=== PATIENT | male | born 1970 | race Caucasian/White ===

== ENCOUNTER → 2017-01-28 | Outpatient (CLI) | payer BC ==
[2017-01-28 18:21] LABS: CHOLESTEROL/HDL RATIO 2.5
== END | disposition home or self-care (01) ==
LOC: C.LABBFT 15:36
PROVIDERS: ATTEND Physician Assistant Medical
DX: E78.5 Hyperlipidemia, unspecified (principal)

== ENCOUNTER 2021-12-14 11:43 | Inpatient (IN) ==
--- NOTE | 2021-12-14 12:12 | Emergency Department Note ---
Impression & Plan Depression with suicidal ideation ED Provider Note NAME: JOSE REAL AGE: 51 SEX: M : 1970 ARRIVES VIA: Walk-In INFORMANT: Patient, the patient's significant other ED PROVIDER(S): Dale Islas DO CHIEF COMPLAINT: Depression HPI: The patient is a 51-year-old male who presented to emergency department with his significant other for an evaluation of mental health issues. The patient was recently diagnosed with bipolar disorder. Initially he was started on Trintellix. He had a recent follow-up appointment a few weeks ago and was switched to lamotrigine. The patient states he still does not feel much better. He is having significant depression. He has had problems with suicidal ideation as well. The patient admits that he was looking for a gun today he was thinking about hurting himself with a gun. He has had no overdose attempts. He has had no previous admissions for mental health issues but he is very worried about his condition and does not feel safe at home. The patient denies having any chest pain or difficulty breathing. He had no recent traveling. He has no cough or fever. The patient states he has been compliant with his usual outpatient medications. ROS: See above HPI for pertinent positives & negatives. A total of 10 systems reviewed and were otherwise negative. PAST MEDICAL HISTORY: See Below PAST SURGICAL HISTORY: See Below FAMILY HISTORY: See Below SOCIAL HISTORY: See Below HOME MEDICATIONS: See Below ALLERGIES: See Below VITALS: See Below PHYSICAL EXAMINATION: GENERAL: The patient is awake and alert. He does not appear to be uncomfortable. EYES: The conjunctivae are clear. The pupils are round and reactive. EARS, NOSE, MOUTH AND THROAT: The nose is without any evidence of any deformity. NECK: The neck is nontender and supple. RESPIRATORY: Normal respiratory effort is noted there is no evidence of wheezing rhonchi or rales CARDIOVASCULAR: Regular rate and rhythm noted there no murmurs rubs or gallops normal S1 normal S2. GASTROINTESTINAL: The abdomen is soft. Abdomen is nontender. MUSCULOSKELETAL/EXTREMITIES: There is no evidence of gross deformity full range of motion is noted in the hips and shoulders. SKIN: There is no obvious evidence of any rash. There are no petechiae, pallor or cyanosis noted. Postsurgical changes are noted in the right hand consistent with recent carpal tunnel release. There was no erythema. NEUROLOGIC: The patient is awake and alert. The patient is oriented x3. PSYCH: The patient makes poor eye contact for some of the evaluation. His affect is flat. He continues to admit to suicidal ideation. MEDICAL DECISION MAKING: The patient is a 51-year-old male who presented to emergency department for an evaluation of mental health issues. The patient was recently diagnosed with bipolar disorder. The patient was started on medications but this was recently changed a few weeks ago. The patient was medically cleared in the emergency department. He was reevaluated by the mental health case management. He was felt to be a good candidate for inpatient management. Triage Nursing notes reviewed. Prior medical records reviewed Vital Signs: reviewed and remarkable for tachycardia. Differential diagnosis: Mood disorder, infection, hypoglycemia, electrolyte abnormalities, cardiac sources, intracerebral event, toxicologic, trauma, neurologic, as well as other pathologies. ER treatment provided: See below Diagnostics interpreted by me: ECG: none Laboratory studies: As stated above and show below. Imaging studies: See below Consultation(s): none Past Med/Surg History Medical History Anxiety Depression Hyperlipidemia Hypertension Surgical History History of colonoscopy Hx of elbow surgery right side tendon repair Hx of vasectomy S/P carpal tunnel release left S/P lumbar laminectomy Family History Mother Colorectal cancer Sister Myocardial infarction Grandfather (Paternal) Diabetes Denies family history of Ovarian cancer Prostate cancer Breast cancer Lung cancer Social History Smoking Status: Never smoker Second Hand Exposure: Yes; Hx Alcohol Use: Yes Alcohol type: beer Alcohol Intake Frequency: 2-3 x/Week Hx Substance Use: No Preferred Language: Telugu Communication Ability: Effective Manager [employer]ing Required: No Beliefs That Will Affect Care: None marital status: Life Partner Current Living Situation: Spouse Feels Safe at Home: Yes caffeine: Yes Dental Care, Regularly: No Physical Activity Frequency: 1-2 Times per Week Seatbelt Use: always Sunscreen Use: Yes Assistive Devices: Glasses Allergies Allergies Allergy/AdvReac Type Severity Reaction Status Date / Time No Known Allergies Allergy Verified 12/14/21 13:10 Home Meds Home Medications Medication Instructions Recorded Confirmed lisinopril 20 mg tablet 20 mg PO QAM 09/26/21 12/14/21 atorvastatin 20 mg tablet 20 mg PO QAM 12/14/21 12/14/21 lamotrigine 25 mg tablet 25 mg PO QAM 12/14/21 12/14/21 Results & Data (ED) Vital Signs Vital Signs - 24 hr 12/14/21 11:47 Temperature 36.1 C L Temperature Source Temporal Artery Scan Pulse Rate 106 H Pulse Rhythm Regular Pulse Strength Normal Respiratory Rate 20 Respiratory Effort / Characteristics Non-Labored Spontaneous Respiratory Depth Normal Respiratory Pattern Regular Blood Pressure 115/84 Blood Pressure Mean 94 Blood Pressure Position Sitting Pulse Oximetry 97 Oxygen Delivery Method Room Air Sepsis Recent Fever Within 48 Hours No Sepsis New/Unexplained Change in Mental Status No Sepsis Action Taken by Nursing No Action Required Home Medications Current Medication List: was personally reviewed by me Laboratory Data Attestation: I reviewed the patient's lab results. Result diagrams: 12/14/21 12:10 12/14/21 12:10 Lab Results 12/14/21 12/14/21 12/14/21 Range/Units 12:10 12:10 12:10 WBC 7.60 (4.8-10.8) K/uL RBC 4.75 (4.7-6.1) M/uL Hgb 14.7 (14.0-18.0) g/dL Hct 43.3 (42-52) % MCV 91.2 (80-100) fL MCH 30.9 (25-34) pg MCHC 33.9 (32-36) g/dL RDW Std Deviation 41.8 (36.4-46.3) fL RDW Coeff of [place] 12.5 (11.5-14.5) % Plt Count 272 (130-400) K/uL MPV 10.6 H (7.4-10.4) fL Immature Gran % (Auto) 0.1 % Neut % (Auto) 77.7 % Lymph % (Auto) 16.3 % Nicholas % (Auto) 5.3 % Eos % (Auto) 0.3 % Baso % (Auto) 0.3 % Neut # (Auto) 5.91 (1.4-6.5) K/uL Lymph # (Auto) 1.24 (1.2-3.4) K/uL Nicholas # (Auto) 0.40 (0.11-0.59) K/uL Eos # (Auto) 0.02 (0-0.5) K/uL Baso # (Auto) 0.02 (0-0.2) K/uL Immature Gran # (Auto) 0.01 (0.00-0.02) K/uL Sodium 138 (136-145) mmol/L Potassium 3.8 (3.5-5.1) mmol/L Chloride 104 (98-107) mmol/L Carbon Dioxide 26 (21-32) mmol/L Anion Gap 8 (3-11) BUN 8 (6-23) mg/dl Creatinine 1.15 (0.6-1.4) mg/dl Est Cr Clr Drug Dosing 80.9 ml/min Est GFR ( Amer) 84.9 ml/min Est GFR (Non-Af Amer) 73.3 ml/min BUN/Creatinine Ratio 7.0 L (10-20) Glucose 137 H (70-99(Fasting)) mg/dl Calcium 9.4 (8.5-10.1) mg/dl Total Bilirubin 1.3 H (0.2-1.0) mg/dl AST 22 (13-39) U/L ALT 35 (7-52) U/L Alkaline Phosphatase 61 (34-104) U/L Total Protein 7.5 (6.0-8.3) gm/dl Albumin 4.5 (3.4-5.0) gm/dl Globulin 3.0 (2.5-4.0) gm/dl Albumin/Globulin Ratio 1.5 (0.9-2) TSH 1.024 (0.300-4.500) uIu/ml Urine Color Urine Appearance (Clear) Urine pH (4.5-7.5) Ur Specific [place] (1.000-1.030) Urine Protein (Negative) Urine Glucose (UA) (Negative) Urine Ketones (Negative) Urine Blood (Negative) Urine Nitrite (Negative) Urine Bilirubin (Negative) Urine Urobilinogen (Negative) Ur Leukocyte Esterase (Negative) Urine WBC (Auto) (0-5) /hpf Urine RBC (Auto) (0-4) /hpf U Hyaline Cast (Auto) (0-5) /lpf U Epithel Cells (Auto) (0-5) /lpf Urine Bacteria (Auto) (Negative) Salicylates (3.0-30) mg/dl Urine Opiates Screen (Neg) Ur Methadone, Qual (Neg) Acetaminophen (10-30) ug/ml Urine Barbiturates (Neg) Ur Phencyclidine (PCP) (Neg) U Amphetamin/Meth Scrn (Neg) MDMA (Ecstasy) Screen (Neg) U Benzodiazepines Scrn (Neg) Ur Cocaine Metabolite (Neg) U Marijuana (THC) Screen (Neg) Ethyl Alcohol mg/dL (<10.0) mg/dl SARS-CoV-2, RNA, NAAT (NEGATIVE) 12/14/21 12/14/21 12/14/21 Range/Units 12:10 12:10 12:36 WBC (4.8-10.8) K/uL RBC (4.7-6.1) M/uL Hgb (14.0-18.0) g/dL Hct (42-52) % MCV (80-100) fL MCH (25-34) pg MCHC (32-36) g/dL RDW Std Deviation (36.4-46.3) fL RDW Coeff of [place] (11.5-14.5) % Plt Count (130-400) K/uL MPV (7.4-10.4) fL Immature Gran % (Auto) % Neut % (Auto) % Lymph % (Auto) % Nicholas % (Auto) % Eos % (Auto) % Baso % (Auto) % Neut # (Auto) (1.4-6.5) K/uL Lymph # (Auto) (1.2-3.4) K/uL Nicholas # (Auto) (0.11-0.59) K/uL Eos # (Auto) (0-0.5) K/uL Baso # (Auto) (0-0.2) K/uL Immature Gran # (Auto) (0.00-0.02) K/uL Sodium (136-145) mmol/L Potassium (3.5-5.1) mmol/L Chloride (98-107) mmol/L Carbon Dioxide (21-32) mmol/L Anion Gap (3-11) BUN (6-23) mg/dl Creatinine (0.6-1.4) mg/dl Est Cr Clr Drug Dosing ml/min Est GFR ( Amer) ml/min Est GFR (Non-Af Amer) ml/min BUN/Creatinine Ratio (10-20) Glucose (70-99(Fasting)) mg/dl Calcium (8.5-10.1) mg/dl Total Bilirubin (0.2-1.0) mg/dl AST (13-39) U/L ALT (7-52) U/L Alkaline Phosphatase (34-104) U/L Total Protein (6.0-8.3) gm/dl Albumin (3.4-5.0) gm/dl Globulin (2.5-4.0) gm/dl Albumin/Globulin Ratio (0.9-2) TSH (0.300-4.500) uIu/ml Urine Color Yellow Urine Appearance Clear (Clear) Urine pH 5.5 (4.5-7.5) Ur Specific [place] 1.003 (1.000-1.030) Urine Protein Negative (Negative) Urine Glucose (UA) Negative (Negative) Urine Ketones Negative (Negative) Urine Blood Trace H (Negative) Urine Nitrite Negative (Negative) Urine Bilirubin Negative (Negative) Urine Urobilinogen Negative (Negative) Ur Leukocyte Esterase Negative (Negative) Urine WBC (Auto) 0 (0-5) /hpf Urine RBC (Auto) 0-4 (0-4) /hpf U Hyaline Cast (Auto) 0 (0-5) /lpf U Epithel Cells (Auto) 0-5 (0-5) /lpf Urine Bacteria (Auto) Negative (Negative) Salicylates < 3.0 L (3.0-30) mg/dl Urine Opiates Screen (Neg) Ur Methadone, Qual (Neg) Acetaminophen < 3 L (10-30) ug/ml Urine Barbiturates (Neg) Ur Phencyclidine (PCP) (Neg) U Amphetamin/Meth Scrn (Neg) MDMA (Ecstasy) Screen (Neg) U Benzodiazepines Scrn (Neg) Ur Cocaine Metabolite (Neg) U Marijuana (THC) Screen (Neg) Ethyl Alcohol mg/dL < 10.0 (<10.0) mg/dl SARS-CoV-2, RNA, NAAT (NEGATIVE) 12/14/21 12/14/21 Range/Units 12:36 12:36 WBC (4.8-10.8) K/uL RBC (4.7-6.1) M/uL Hgb (14.0-18.0) g/dL Hct (42-52) % MCV (80-100) fL MCH (25-34) pg MCHC (32-36) g/dL RDW Std Deviation (36.4-46.3) fL RDW Coeff of [place] (11.5-14.5) % Plt Count (130-400) K/uL MPV (7.4-10.4) fL Immature Gran % (Auto) % Neut % (Auto) % Lymph % (Auto) % Nicholas % (Auto) % Eos % (Auto) % Baso % (Auto) % Neut # (Auto) (1.4-6.5) K/uL Lymph # (Auto) (1.2-3.4) K/uL Nicholas # (Auto) (0.11-0.59) K/uL Eos # (Auto) (0-0.5) K/uL Baso # (Auto) (0-0.2) K/uL Immature Gran # (Auto) (0.00-0.02) K/uL Sodium (136-145) mmol/L Potassium (3.5-5.1) mmol/L Chloride (98-107) mmol/L Carbon Dioxide (21-32) mmol/L Anion Gap (3-11) BUN (6-23) mg/dl Creatinine (0.6-1.4) mg/dl Est Cr Clr Drug Dosing ml/min Est GFR ( Amer) ml/min Est GFR (Non-Af Amer) ml/min BUN/Creatinine Ratio (10-20) Glucose (70-99(Fasting)) mg/dl Calcium (8.5-10.1) mg/dl Total Bilirubin (0.2-1.0) mg/dl AST (13-39) U/L ALT (7-52) U/L Alkaline Phosphatase (34-104) U/L Total Protein (6.0-8.3) gm/dl Albumin (3.4-5.0) gm/dl Globulin (2.5-4.0) gm/dl Albumin/Globulin Ratio (0.9-2) TSH (0.300-4.500) uIu/ml Urine Color Urine Appearance (Clear) Urine pH (4.5-7.5) Ur Specific [place] (1.000-1.030) Urine Protein (Negative) Urine Glucose (UA) (Negative) Urine Ketones (Negative) Urine Blood (Negative) Urine Nitrite (Negative) Urine Bilirubin (Negative) Urine Urobilinogen (Negative) Ur Leukocyte Esterase (Negative) Urine WBC (Auto) (0-5) /hpf Urine RBC (Auto) (0-4) /hpf U Hyaline Cast (Auto) (0-5) /lpf U Epithel Cells (Auto) (0-5) /lpf Urine Bacteria (Auto) (Negative) Salicylates (3.0-30) mg/dl Urine Opiates Screen Neg (Neg) Ur Methadone, Qual Neg (Neg) Acetaminophen (10-30) ug/ml Urine Barbiturates Neg (Neg) Ur Phencyclidine (PCP) Neg (Neg) U Amphetamin/Meth Scrn Neg (Neg) MDMA (Ecstasy) Screen Neg (Neg) U Benzodiazepines Scrn Neg (Neg) Ur Cocaine Metabolite Neg (Neg) U Marijuana (THC) Screen Neg (Neg) Ethyl Alcohol mg/dL (<10.0) mg/dl SARS-CoV-2, RNA, NAAT NEGATIVE (NEGATIVE) Discharge Plan Visit Data Chief Complaint: Mental Health Evaluation Stated Complaint: MENTAL HEALTH EVAL, SUICIDAL ED Provider: Dale Islas Discharge Problem: Depression with suicidal ideation Patient Disposition: Still a Patient Forms Stand Alone Forms: [facility], Suicide Prevention Resources Prescriptions Prescriptions: No Action atorvastatin 20 mg tablet 20 mg PO QAM RF: 0 lamotrigine 25 mg tablet 25 mg PO QAM RF: 0 lisinopril 20 mg tablet 20 mg PO QAM RF: 0 Referrals Referrals: PCP,NO [Physician] -
[2021-12-14 12:36] LABS: Basophils # (auto) 0.02 K/uL (0-0.2); Basophils % (auto) 0.3 %; Eosinophils # (auto) 0.02 K/uL (0-0.5); Eosinophils % (auto) 0.3 %; Hematocrit (blood only) 43.3 % (42-52); Hemoglobin 14.7 g/dL (14.0-18.0); Immature Granulocytes # (auto) 0.01 K/uL (0.00-0.02); Immature Granulocytes % (auto) 0.1 %; Lymphocytes # (auto) 1.24 K/uL (1.2-3.4); Lymphocytes % (auto) 16.3 %; Mean Corpuscular Hemoglobin 30.9 pg (25-34); Mean Corpuscular Hgb Conc 33.9 g/dL (32-36); Mean Corpuscular Volume 91.2 fL (80-100); Mean Platelet Volume 10.6 fL (7.4-10.4); Monocytes % (auto) 5.3 %; Neutrophils # (auto) 5.91 K/uL (1.4-6.5); Neutrophils % (auto) 77.7 %; Platelet Count 272 K/uL (130-400); RDW Coefficient of Variation 12.5 % (11.5-14.5); RDW Standard Deviation 41.8 fL (36.4-46.3); Red Blood Count 4.75 M/uL (4.7-6.1)
[2021-12-14 12:43] LABS: Appearance Urine Clear (Clear); Bacteria Urine Automated Negative (Negative); Bilirubin Urine Negative (Negative); Blood Urine Trace (Negative); Cast Urine Automated 0 /lpf (0-5); Color Urine Yellow; Epithelial Cell Urine Auto 0-5 /lpf (0-5); Glucose Urine UA Negative (Negative); Ketones Urine Negative (Negative); Leukocyte Esterase Urine Negative (Negative); Nitrite Urine Negative (Negative); Protein Urine Negative (Negative); RBC Urine Automated 0-4 /hpf (0-4); Specific Gravity Urine 1.003 (1.000-1.030); Urobilinogen Urine Negative (Negative); WBC Urine Automated 0 /hpf (0-5); pH Urine 5.5 (4.5-7.5)
[2021-12-14 12:47] LABS: Acetaminophen < 3 ug/ml (10-30); Salicylate < 3.0 mg/dl (3.0-30)
[2021-12-14 12:48] LABS: Albumin Globulin Ratio 1.5 (0.9-2); Albumin Level 4.5 gm/dl (3.4-5.0); Bilirubin,Total 1.3 mg/dl (0.2-1.0); Calcium 9.4 mg/dl (8.5-10.1); Creatinine Clr Calc Pharmacy 80.9 ml/min; Est GFR (African American) 84.9 ml/min; Est GFR (Non-African American) 73.3 ml/min; Potassium 3.8 mmol/L (3.5-5.1); Total Protein 7.5 gm/dl (6.0-8.3)
[2021-12-14 13:29] LABS: Amphetamines+Metham, Urine Neg (Neg); Barbiturates, Urine Neg (Neg); Benzodiazepine, Urine Neg (Neg); Cocaine, Urine Neg (Neg); MDMA (Ecstacy), Urine Neg (Neg); Methadone, Urine Neg (Neg); Opiate, Urine Neg (Neg); Phencyclidine, Urine Neg (Neg)
[2021-12-14] MEDS ORDERED: ALUMINUM/MAGNESIUM SUSP 30 ML UDC PO PRN (15:48)
[2021-12-14] MEDS ORDERED: SODIUM CHLORIDE 0.65% NA SOLN 45 ML (OCEAN) PRN (15:48)
[2021-12-14] MEDS ORDERED: hydrOXYzine HCl 25 MG TAB PO PRN ×2 (15:48)
[2021-12-14] MEDS ORDERED: MAGNESIUM HYDROXIDE SUSP 30 ML UDC PO PRN (15:48)
[2021-12-14] MEDS ORDERED: BISMUTH SUBSALICYLATE LIQD 236 ML PO PRN (15:48)
[2021-12-14] MEDS ORDERED: ACETAMINOPHEN 325 MG TAB PO PRN (15:48)
[2021-12-15] MEDS: lisinopril 20 MG TAB PO SCH (08:22)
[2021-12-15] MEDS: lamoTRIgine 25 MG TAB PO SCH (08:23)
[2021-12-15] MEDS: ATORVASTATIN 20 MG TAB PO SCH (08:23)
--- NOTE | 2021-12-15 09:44 | History & Physical ---
Date of Service December 15, 2021 Impression / Recommendations Impression 51 yo male with bipolar depression presents with worsening of mood over the past 6 months complicated by loss of brother 1 year ago, currently off work due to surgery recovery, recently started Lamictal but little relief given low dose. (1) Bipolar disorder: The patient was admitted to the [facility] ([facility] mental health unit) on q15 min checks (behavioral with suicide precautions) for safety. The patient will participate in group, recreational, and milieu therapies and will be offered additional individual and family sessions as clinically appropriate. Risks/benefits/alternatives reviewed re: Lamictal for mood stabilization. Discussion included but was not limited to slow titration to decrease risks of Yahir's Dagoberto syndrome. Patient agrees to hold med/notify current prescriber of rash immediately. Risks/benefits/alternatives were reviewed re: antipsychotics for mood and/or psychosis. Discussion included but was not limited to metabolic side effects, risks of TD and suicidal thoughts. There were no abnormal motor movements at baseline. Fasting glucose and lipid panel ordered for baseline monitoring. He agreed to a trial of Seroquel 50 mg po qhs with likely titration until Lamictal therapeutic. 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 Chief Complaint patient had bullets and was looking for his gun History of Present Illness Jose presented to the ED with his . He has been experiencing periods of depression and mood instability for years but was only recently diagnosed with bipolar disorder by his provider at [facility]. Symptoms have been worse in the past 6 months due to a variety of stressors. He was in 09/04 and is currently off of work until 12/29/21 following carpal tunnel release. His mother of complications of cancer last year. He has periods of up to 3 days at a time where he doesn't sleep and his appetite has been poor with a 10 lb weight loss. His brother of suicide and although he doesn't want to harm himself, he became so restless and with racing thoughts he felt not in control. He clarifies that he had some control as otherwise he could have pushed past his to get the gun. He states that he was using more alcohol (up to 6 beers a day) to manage his thoughts until 2 weeks ago. He denies having a drinking problem, states he stopped because it wasn't helping. He thinks that being off work made it harder to deal with his upsetting thoughts as no distractor. When no sleeping well he denies cardenas but gets more jealous/suspicious bordering on paranoid. Example he gave was asking alot of questions when a man brought her a drink at a bar. He states that he's not a "hot head" but has had brief periods of increase irritability where he will throw or break something if it doesn't go his way. This is unlike him and describes breaking a weed whacker. He relates well to his ex and is involved in his children's school activities. He reports atypical response to antidepressant medications, started Prozac for irritability but it caused sexual side effects. He is toleraing Lamictal so far but only a few days on 25 mg. He denies any history of jennifer patience. He doesn't view himself as anxious but will feel internally restless. He reports some OCD traits like having to rearrange the place settings at a meal and have things in their place. Past Psychiatric History Previous Psych History: no therapist Current Psychiatric Diagnosis: Bipolar Outpatient Services: [facility] Previous Psych Admissions: none Do You Have Access To A Gun?: Yes (need to confirm removes) History of Previous Suicide Attempt: No Describe Attempts in the Past: no prior attempts Past Medication Trials: Wellbutrin up to 300 mg, Prozac, Trintellix, just started Lamictal after Trintel lix trial. Past Head Trauma/Neuro History denied Allergies Allergy/AdvReac Type Severity Reaction Status Date / Time No Known Allergies Allergy Verified 12/14/21 13:10 Home Medications Medication Instructions Recorded Confirmed Type lisinopril 20 mg tablet 20 mg PO QAM 09/26/21 12/14/21 History atorvastatin 20 mg tablet 20 mg PO QAM 12/14/21 12/14/21 History lamotrigine 25 mg tablet 25 mg PO QAM 12/14/21 12/14/21 History bupropion HCl 150 mg 24 hr tablet, 150 mg PO DAILY 12/15/21 12/15/21 History extended release Family History Family History of: Alcoholism/Drug Abuse (father) and Suicide Completion (brother, years ago his sister had an [place] from an OD) Alcohol History Hx of Alcohol Use Over the Past 12 Months: Yes (2-3 beers per week) AUDIT Total Score: 7 Smoking Use Have You Smoked or Used Tobacco Products in the Last 30 Days: No Smoking Status: Never smoker Substance History Hx of Prescription Med Misuse Over the Past 12 Months: No Hx of Over the Counter Med Misuse Over the Past 12 Months: No Hx of Inhalent Misuse Over the Past 12 Months: No Hx of Organic Substance Use Over the Past 12 Months: No Hx of Illegal Substances/Street Drug Use Over Past 12 Months: No Problems as a Result of Past Substance Use: None Identified Personal History Living Arrangements: Home Childhood: 1 of 5 children, 2nd to youngest. Dad left when he was 4, not much relationship. 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) Marital Status: Number Of Children: 3 teenagers from 1st marriage live with mother, has 2 adult kids Beliefs That Will Affect Care: None Current Legal Problems: No Hx Legal Problems: No Hx Traumatic Life Events: Yes (family losses) Patient History Medical History Anxiety Depression Hyperlipidemia Hypertension Surgical History History of colonoscopy Hx of elbow surgery right side tendon repair Hx of vasectomy S/P carpal tunnel release left S/P lumbar laminectomy Family History Mother Colorectal cancer Sister Myocardial infarction Grandfather (Paternal) Diabetes Denies family history of Ovarian cancer Prostate cancer Breast cancer Lung cancer Social History Smoking Status: Never smoker Second Hand Exposure: Yes; Hx Alcohol Use: Yes Alcohol type: beer Alcohol Intake Frequency: 2-3 x/Week Hx Substance Use: No Preferred Language: Niuean Communication Ability: Effective Construction Safety Consultant Required: No Beliefs That Will Affect Care: None marital status: Life Partner Current Living Situation: Spouse Feels Safe at Home: No Is there a partner from a previous relationship who is making you feel unsafe now?: No caffeine: Yes Dental Care, Regularly: No Physical Activity Frequency: 1-2 Times per Week Seatbelt Use: always Sunscreen Use: Yes Assistive Devices: Glasses Review of Systems Review of Systems: All systems reviewed & are unremarkable except as noted in HPI & below Physical Exam Psychiatric: Orientation: alert and oriented x 3 Apperance: appropriately dressed and appropriately groomed Eye Contact: good eye contact Motor Behavior: no abnormal motor movements Speech: normal rate/rhythm/volume of speech Affect: + depressed affect Mood: + depressed mood Thought Process: goal directed thought process Thought Content: reality based without delusions Suicidal Thoughts: denies suicidal intent; + reports suicidal thoughts and + reports suicidal plan Homicidal Thoughts: denies homicidal thoughts Hallucinations: no auditory hallucinations and no visual hallucinations Cognition: attention grossly intact and language grossly intact Estimated Intelligence: consistent with education level Insight: + limited insight Judgement: + limited judgement Vital Signs (Past 24 Hours): Last Vital Signs Temp 36.6 C 12/15/21 06:43 Pulse 70 12/15/21 06:43 Resp 16 12/15/21 06:43 BP 110/71 12/15/21 06:43 Pulse Ox 99 12/14/21 16:20 Exam Statement: A physical exam was performed in the ED by Dr. Islas for the purposes of medical clearance. I accept that physical as correct and adequate for the purposes of the inpatient physical exam. Results & Data ([facility]) Laboratory Results Laboratory Results - last 24 hr 12/14/21 12/14/21 12/14/21 12:10 12:10 12:10 WBC 7.60 RBC 4.75 Hgb 14.7 Hct 43.3 MCV 91.2 MCH 30.9 MCHC 33.9 RDW Std Deviation 41.8 RDW Coeff of [place] 12.5 Plt Count 272 MPV 10.6 H Immature Gran % (Auto) 0.1 Neut % (Auto) 77.7 Lymph % (Auto) 16.3 [place] % (Auto) 5.3 Eos % (Auto) 0.3 Baso % (Auto) 0.3 Neut # (Auto) 5.91 Lymph # (Auto) 1.24 [place] # (Auto) 0.40 Eos # (Auto) 0.02 Baso # (Auto) 0.02 Immature Gran # (Auto) 0.01 Sodium 138 Potassium 3.8 Chloride 104 Carbon Dioxide 26 Anion Gap 8 BUN 8 Creatinine 1.15 Est Cr Clr Drug Dosing 80.9 Est GFR ( Amer) 84.9 Est GFR (Non-Af Amer) 73.3 BUN/Creatinine Ratio 7.0 L Glucose 137 H Calcium 9.4 Total Bilirubin 1.3 H AST 22 ALT 35 Alkaline Phosphatase 61 Total Protein 7.5 Albumin 4.5 Globulin 3.0 Albumin/Globulin Ratio 1.5 TSH 1.024 Urine Color Urine Appearance Urine pH Ur Specific [place] Urine Protein Urine Glucose (UA) Urine Ketones Urine Blood Urine Nitrite Urine Bilirubin Urine Urobilinogen Ur Leukocyte Esterase Urine WBC (Auto) Urine RBC (Auto) U Hyaline Cast (Auto) U Epithel Cells (Auto) Urine Bacteria (Auto) Salicylates Urine Opiates Screen Ur Methadone, Qual Acetaminophen Urine Barbiturates Ur Phencyclidine (PCP) U Amphetamin/Meth Scrn MDMA (Ecstasy) Screen U Benzodiazepines Scrn Ur Cocaine Metabolite U Marijuana (THC) Screen Ethyl Alcohol mg/dL SARS-CoV-2, RNA, NAAT 12/14/21 12/14/21 12/14/21 12:10 12:10 12:36 WBC RBC Hgb Hct MCV MCH MCHC RDW Std Deviation RDW Coeff of [place] Plt Count MPV Immature Gran % (Auto) Neut % (Auto) Lymph % (Auto) [place] % (Auto) Eos % (Auto) Baso % (Auto) Neut # (Auto) Lymph # (Auto) [place] # (Auto) Eos # (Auto) Baso # (Auto) Immature Gran # (Auto) Sodium Potassium Chloride Carbon Dioxide Anion Gap BUN Creatinine Est Cr Clr Drug Dosing Est GFR ( Amer) Est GFR (Non-Af Amer) BUN/Creatinine Ratio Glucose Calcium Total Bilirubin AST ALT Alkaline Phosphatase Total Protein Albumin Globulin Albumin/Globulin Ratio TSH Urine Color Yellow Urine Appearance Clear Urine pH 5.5 Ur Specific [place] 1.003 Urine Protein Negative Urine Glucose (UA) Negative Urine Ketones Negative Urine Blood Trace H Urine Nitrite Negative Urine Bilirubin Negative Urine Urobilinogen Negative Ur Leukocyte Esterase Negative Urine WBC (Auto) 0 Urine RBC (Auto) 0-4 U Hyaline Cast (Auto) 0 U Epithel Cells (Auto) 0-5 Urine Bacteria (Auto) Negative Salicylates < 3.0 L Urine Opiates Screen Ur Methadone, Qual Acetaminophen < 3 L Urine Barbiturates Ur Phencyclidine (PCP) U Amphetamin/Meth Scrn MDMA (Ecstasy) Screen U Benzodiazepines Scrn Ur Cocaine Metabolite U Marijuana (THC) Screen Ethyl Alcohol mg/dL < 10.0 SARS-CoV-2, RNA, NAAT 12/14/21 12/14/21 12:36 12:36 WBC RBC Hgb Hct MCV MCH MCHC RDW Std Deviation RDW Coeff of [place] Plt Count MPV Immature Gran % (Auto) Neut % (Auto) Lymph % (Auto) [place] % (Auto) Eos % (Auto) Baso % (Auto) Neut # (Auto) Lymph # (Auto) [place] # (Auto) Eos # (Auto) Baso # (Auto) Immature Gran # (Auto) Sodium Potassium Chloride Carbon Dioxide Anion Gap BUN Creatinine Est Cr Clr Drug Dosing Est GFR ( Amer) Est GFR (Non-Af Amer) BUN/Creatinine Ratio Glucose Calcium Total Bilirubin AST ALT Alkaline Phosphatase Total Protein Albumin Globulin Albumin/Globulin Ratio TSH Urine Color Urine Appearance Urine pH Ur Specific [place] Urine Protein Urine Glucose (UA) Urine Ketones Urine Blood Urine Nitrite Urine Bilirubin Urine Urobilinogen Ur Leukocyte Esterase Urine WBC (Auto) Urine RBC (Auto) U Hyaline Cast (Auto) U Epithel Cells (Auto) Urine Bacteria (Auto) Salicylates Urine Opiates Screen Neg Ur Methadone, Qual Neg Acetaminophen Urine Barbiturates Neg Ur Phencyclidine (PCP) Neg U Amphetamin/Meth Scrn Neg MDMA (Ecstasy) Screen Neg U Benzodiazepines Scrn Neg Ur Cocaine Metabolite Neg U Marijuana (THC) Screen Neg Ethyl Alcohol mg/dL SARS-CoV-2, RNA, NAAT NEGATIVE Current Inpatient Medications Current Inpatient Medications: Current Inpatient Medications Acetaminophen (Acetaminophen 325 Mg Tab) 650 mg PO Q4H PRN PRN Reason: Headache or Minor Fever Stop: 01/13/22 15:47 Al Hydrox/Mg Hydrox/Simethicone (Aluminum/Magnesium Susp 30 Ml Udc) 30 ml PO Q4H PRN PRN Reason: GI Upset Stop: 01/13/22 15:47 Atorvastatin Calcium (Atorvastatin 20 Mg Tab) 20 mg PO [facility] Stop: 01/14/22 08:59 Last Admin: 12/15/21 08:23 Dose: 20 mg Documented by: Bismuth Subsalicylate (Bismuth Subsalicylate Liqd 236 Ml) 15 ml PO PRN PRN PRN Reason: Loose Stool Stop: 01/13/22 15:47 Hydroxyzine HCl (Hydroxyzine Hcl 25 Mg Tab) 50 mg PO HSZ PRN PRN Reason: Insomnia Stop: 01/13/22 15:47 Hydroxyzine HCl (Hydroxyzine Hcl 25 Mg Tab) 25 mg PO Q4H PRN PRN Reason: Anxiety Stop: 01/13/22 15:47 Lamotrigine (Lamotrigine 25 Mg Tab) 25 mg PO [facility] Stop: 01/14/22 08:59 Last Admin: 12/15/21 08:23 Dose: 25 mg Documented by: Lisinopril (Lisinopril 20 Mg Tab) 20 mg PO [facility] Stop: 01/14/22 08:59 Last Admin: 12/15/21 08:22 Dose: 20 mg Documented by: Magnesium Hydroxide (Magnesium Hydroxide Susp 30 Ml Udc) 30 ml PO DAILY PRN PRN Reason: Constipation Stop: 01/13/22 15:47 Sodium Chloride (Sodium Chloride 0.65% Na Soln 45 Ml ([place])) 1 - 2 sprays NA PRN PRN PRN Reason: Nasal Dryness/Congestion Stop: 01/13/22 15:47
[2021-12-15] MEDS ORDERED: QUEtiapine FUMARATE 25 MG TABLET PO PRN (11:26)
[2021-12-15] MEDS: QUEtiapine FUMARATE 25 MG TABLET PO SCH (20:47)
[2021-12-16] MEDS: ATORVASTATIN 20 MG TAB PO SCH (08:48)
[2021-12-16] MEDS: lamoTRIgine 25 MG TAB PO SCH (08:48)
[2021-12-16] MEDS: lisinopril 20 MG TAB PO SCH (08:48)
[2021-12-16 10:03] LABS: Chol HDL Ratio 2.9 (0-5)
--- NOTE | 2021-12-16 11:17 | Psychiatric Progress Note ---
Date of Service December 16, 2021 Impression / Recommendations Impression 51 yo male with bipolar depression presents with worsening of mood over the past 6 months complicated by loss of brother 1 year ago, currently off work due to surgery recovery, recently started Lamictal but little relief given low dose. 12/16/21: improving (1) Bipolar disorder: 12/16/21: re-reviewed start date of Lamictal. Can increase to 50 mg tomorrow. Continue seroquel and reviewed labs and dose range. 12/15/21: The patient was admitted to the [facility] ([facility]) on q15 min checks (behavioral with suicide precautions) for safety. The patient will participate in group, recreational, and milieu therapies and will be offered additional individual and family sessions as clinically appropriate. Risks/benefits/alternatives reviewed re: Lamictal for mood stabilization. Discussion included but was not limited to slow titration to decrease risks of Yahir's Dagoberto syndrome. Patient agrees to hold med/notify current prescriber of rash immediately. Risks/benefits/alternatives were reviewed re: antipsychotics for mood and/or psychosis. Discussion included but was not limited to metabolic side effects, risks of TD and suicidal thoughts. There were no abnormal motor movements at baseline. Fasting glucose and lipid panel ordered for baseline monitoring. He agreed to a trial of Seroquel 50 mg po qhs with likely titration until Lamictal therapeutic. Inventory Assets Strengths: help seeking, supportive Needs: outpatient therapy, safety plan Risk Factors Assessment Male: Yes : Yes Do You Have Access To A Gun?: Yes Mental Health Diagnoses: Yes Substance Use Disorders: No Previous Attempt: No Family History of Suicide: Yes Previous Psychiatric Hospitalization: No Protective Factors Assessment : Yes Employed: Yes ([employer]) Supportive Family: Yes Interval History Identifying Information JOSE REAL is a 51-year-old M who currently lives in [place], has a recent bipolar dx, and was admitted on 12/14/21 16:16 on a 201 voluntary commitment for SI with acts of furtherance. Chief Complaint "I slept well, I feel hopeful". Review of Systems Sleep Information Total Hours of Sleep: 6.5 Sleep Comments: pt on q-15 minute checks Meal Information Percent Meal Consumed - Breakfast: 60 Percent Meal Consumed - Lunch: 100 Percent Meal Consumed - Dinner: 80 Subjective Subjective Patient was seen & assessed and interval progress reviewed with nursing and social work. Family meeting with went well per patient. Sleep is improving. No mood instability noted on unit. Tolerating medication. Physical Exam Psychiatric Orientation: alert and oriented x 3 Apperance: appropriately dressed and appropriately groomed Eye Contact: good eye contact Motor Behavior: no abnormal motor movements Speech: normal rate/rhythm/volume of speech Affect: euthymic affect Mood: + depressed mood Thought Process: goal directed thought process Thought Content: reality based without delusions Suicidal Thoughts: denies suicidal thoughts and denies suicidal plan Homicidal Thoughts: denies homicidal thoughts Hallucinations: no auditory hallucinations and no visual hallucinations Cognition: attention grossly intact and language grossly intact Estimated Intelligence: consistent with education level Insight: + fair insight Vital Signs (Past 24 Hours) Last Vital Signs Temp 36.5 C 12/16/21 06:51 Pulse 89 12/16/21 06:52 Resp 16 12/16/21 06:51 BP 110/72 12/16/21 06:52 Pulse Ox 99 12/14/21 16:20 Results & Data ([facility]) Laboratory Results Laboratory Results - last 24 hr 12/16/21 08:40 Fasting Glucose 79 Triglycerides 106 Cholesterol 125 LDL Cholesterol, Calc 61 VLDL Cholesterol, Calc 21 HDL Cholesterol 43 Cholesterol/HDL Ratio 2.9 Current Inpatient Medications Current Inpatient Medications: Current Inpatient Medications Acetaminophen (Acetaminophen 325 Mg Tab) 650 mg PO Q4H PRN PRN Reason: Headache or Minor Fever Stop: 01/13/22 15:47 Al Hydrox/Mg Hydrox/Simethicone (Aluminum/Magnesium Susp 30 Ml Udc) 30 ml PO Q4H PRN PRN Reason: GI Upset Stop: 01/13/22 15:47 Atorvastatin Calcium (Atorvastatin 20 Mg Tab) 20 mg PO QAM JEANNINE Stop: 01/14/22 08:59 Last Admin: 12/16/21 08:48 Dose: 20 mg Documented by: Bismuth Subsalicylate (Bismuth Subsalicylate Liqd 236 Ml) 15 ml PO PRN PRN PRN Reason: Loose Stool Stop: 01/13/22 15:47 Hydroxyzine HCl (Hydroxyzine Hcl 25 Mg Tab) 25 mg PO Q4H PRN PRN Reason: Anxiety Stop: 01/13/22 15:47 Lamotrigine (Lamotrigine 25 Mg Tab) 25 mg PO QAM JEANNINE Stop: 01/14/22 08:59 Last Admin: 12/16/21 08:48 Dose: 25 mg Documented by: Lisinopril (Lisinopril 20 Mg Tab) 20 mg PO QAM [facility] Stop: 01/14/22 08:59 Last Admin: 12/16/21 08:48 Dose: 20 mg Documented by: Magnesium Hydroxide (Magnesium Hydroxide Susp 30 Ml Udc) 30 ml PO DAILY PRN PRN Reason: Constipation Stop: 01/13/22 15:47 Quetiapine Fumarate (Quetiapine Fumarate 25 Mg Tablet) 50 mg PO HS [facility] Stop: 01/14/22 21:59 Last Admin: 12/15/21 20:47 Dose: 50 mg Documented by: Quetiapine Fumarate (Quetiapine Fumarate 25 Mg Tablet) 50 mg PO HS PRN PRN Reason: Anxiety/Insomnia Stop: 01/14/22 21:59 Sodium Chloride (Sodium Chloride 0.65% Na Soln 45 Ml (Desha)) 1 - 2 sprays NA PRN PRN PRN Reason: Nasal Dryness/Congestion Stop: 01/13/22 15:47 Post Discharge Appointments Primary Care Physician Name Of Family Doctor: Karin Mosher
[2021-12-16] MEDS: QUEtiapine FUMARATE 25 MG TABLET PO SCH (20:38)
[2021-12-17] MEDS ORDERED: lamoTRIgine 25 MG TAB PO SCH (09:00)
[2021-12-17] MEDS: ATORVASTATIN 20 MG TAB PO SCH (09:02)
[2021-12-17] MEDS: lisinopril 20 MG TAB PO SCH (09:02)
--- NOTE | 2021-12-17 11:08 | Discharge Summary ---
Date of Service December 17, 2021 History of Present Illness Rishi presented to the ED with his . He has been experiencing periods of depression and mood instability for years but was only recently diagnosed with bipolar disorder by his provider at [place]. Symptoms have been worse in the past 6 months due to a variety of stressors. He was in 09/04 and is currently off of work until 12/29/21 following carpal tunnel release. His mother of complications of cancer last year. He has periods of up to 3 days at a time where he doesn't sleep and his appetite has been poor with a 10 lb weight loss. His brother of suicide and although he doesn't want to harm himself, he became so restless and with racing thoughts he felt not in control. He clarifies that he had some control as otherwise he could have pushed past his to get the gun. He states that he was using more alcohol (up to 6 beers a day) to manage his thoughts until 2 weeks ago. He denies having a drinking problem, states he stopped because it wasn't helping. He thinks that being off work made it harder to deal with his upsetting thoughts as no distractor. When no sleeping well he denies cardenas but gets more jealous/suspicious bordering on paranoid. Example he gave was asking alot of questions when a man brought her a drink at a bar. He states that he's not a "hot head" but has had brief periods of increase irritability where he will throw or break something if it doesn't go his way. This is unlike him and descr ibes breaking a weed whacker. He relates well to his ex and is involved in his children's school activities. He reports atypical response to antidepressant medications, started Prozac for irritability but it caused sexual side effects. He is toleraing Lamictal so far but only a few days on 25 mg. He denies any history of jennifer patience. He doesn't view himself as anxious but will feel internally restless. He reports some OCD traits like having to rearrange the place settings at a meal and have things in their place. Physical Exam Psychiatric See admission H&P and DOD assessment. Vital Signs (Past 24 Hours) Last Vital Signs Temp 36.6 C 12/17/21 06:51 Pulse 77 12/17/21 06:52 Resp 16 12/17/21 06:51 BP 107/71 12/17/21 06:52 Pulse Ox 99 12/14/21 16:20 Principal Diagnosis bipolar II disorder Psychiatric Data See daily stay summary. In short, safety was maintained and the patient was cooperative with care. Medication changes included addition of mood stabilizer Seroquel pending titration of Lamictal to therapeutic level and they tolerated this well. Lamictal was increased to 50 mg on 12/17/21. A family session was held with his who did confirm that guns were removed from the home and safety plan was completed prior to discharge. Rishi was an active participant in groups and really benefited from the therap eutic milieu. Day of Discharge Assessment Today the patient voices readiness for discharge. They note improvement in mood and deny thoughts to harm self or others. Thoughts remain organized and they are improved from admission. There is no evidence of psychosis. They agree to take mediations as prescribed and keep follow-up appointments. They are stable for discharge to outpatient level of care. Transition of Care Transition Of Care Record: was reviewed with the patient Advance Directives Advance Directives Information Provided: No Advance Directives: No Mental Health Advance Directive: No Advance Directives on File: No Living Will: No Power of Allied Health Instructor: No Advance Directives Reason:: Declines as Mental Health Visit. 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[employer]) Supportive Family: Yes Tobacco Cessation at Discharge Tobacco Cessation Medication Prescribed at Discharge: Not Applicable/Non-Smoker Total Time Total Time Spent: Greater Than 30 Minutes Total Time Includes: Examination of the patient, Discharge Planning and Medication Reconciliation Discharge Data Lab Results 12/14/21 12/14/21 12/14/21 12:10 12:10 12:10 WBC 7.60 RBC 4.75 Hgb 14.7 Hct 43.3 MCV 91.2 MCH 30.9 MCHC 33.9 RDW Std Deviation 41.8 RDW Coeff of Vernon 12.5 Plt Count 272 MPV 10.6 H Immature Gran % (Auto) 0.1 Neut % (Auto) 77.7 Lymph % (Auto) 16.3 Coryell % (Auto) 5.3 Eos % (Auto) 0.3 Baso % (Auto) 0.3 Neut # (Auto) 5.91 Lymph # (Auto) 1.24 Coryell # (Auto) 0.40 Eos # (Auto) 0.02 Baso # (Auto) 0.02 Immature Gran # (Auto) 0.01 Sodium 138 Potassium 3.8 Chloride 104 Carbon Dioxide 26 Anion Gap 8 BUN 8 Creatinine 1.15 Est Cr Clr Drug Dosing 80.9 Est GFR ( Amer) 84.9 Est GFR (Non-Af Amer) 73.3 BUN/Creatinine Ratio 7.0 L Glucose 137 H Fasting Glucose Calcium 9.4 Total Bilirubin 1.3 H AST 22 ALT 35 Alkaline Phosphatase 61 Total Protein 7.5 Albumin 4.5 Globulin 3.0 Albumin/Globulin Ratio 1.5 Triglycerides Cholesterol LDL Cholesterol, Calc VLDL Cholesterol, Calc HDL Cholesterol Cholesterol/HDL Ratio TSH 1.024 Urine Color Urine Appearance Urine pH Ur Specific Monroe Urine Protein Urine Glucose (UA) Urine Ketones Urine Blood Urine Nitrite Urine Bilirubin Urine Urobilinogen Ur Leukocyte Esterase Urine WBC (Auto) Urine RBC (Auto) U Hyaline Cast (Auto) U Epithel Cells (Auto) Urine Bacteria (Auto) Salicylates Urine Opiates Screen Ur Methadone, Qual Acetaminophen Urine Barbiturates Ur Phencyclidine (PCP) U Amphetamin/Meth Scrn MDMA (Ecstasy) Screen U Benzodiazepines Scrn Ur Cocaine Metabolite U Marijuana (THC) Screen Ethyl Alcohol mg/dL SARS-CoV-2, RNA, NAAT 12/14/21 12/14/21 12/14/21 12:10 12:10 12:36 WBC RBC Hgb Hct MCV MCH MCHC RDW Std Deviation RDW Coeff of Vernon Plt Count MPV Immature Gran % (Auto) Neut % (Auto) Lymph % (Auto) Coryell % (Auto) Eos % (Auto) Baso % (Auto) Neut # (Auto) Lymph # (Auto) Coryell # (Auto) Eos # (Auto) Baso # (Auto) Immature Gran # (Auto) Sodium Potassium Chloride Carbon Dioxide Anion Gap BUN Creatinine Est Cr Clr Drug Dosing Est GFR ( Amer) Est GFR (Non-Af Amer) BUN/Creatinine Ratio Glucose Fasting Glucose Calcium Total Bilirubin AST ALT Alkaline Phosphatase Total Protein Albumin Globulin Albumin/Globulin Ratio Triglycerides Cholesterol LDL Cholesterol, Calc VLDL Cholesterol, Calc HDL Cholesterol Cholesterol/HDL Ratio TSH Urine Color Yellow Urine Appearance Clear Urine pH 5.5 Ur Specific Monroe 1.003 Urine Protein Negative Urine Glucose (UA) Negative Urine Ketones Negative Urine Blood Trace H Urine Nitrite Negative Urine Bilirubin Negative Urine Urobilinogen Negative Ur Leukocyte Esterase Negative Urine WBC (Auto) 0 Urine RBC (Auto) 0-4 U Hyaline Cast (Auto) 0 U Epithel Cells (Auto) 0-5 Urine Bacteria (Auto) Negative Salicylates < 3.0 L Urine Opiates Screen Ur Methadone, Qual Acetaminophen < 3 L Urine Barbiturates Ur Phencyclidine (PCP) U Amphetamin/Meth Scrn MDMA (Ecstasy) Screen U Benzodiazepines Scrn Ur Cocaine Metabolite U Marijuana (THC) Screen Ethyl Alcohol mg/dL < 10.0 SARS-CoV-2, RNA, NAAT 12/14/21 12/14/21 12/16/21 12:36 12:36 08:40 WBC RBC Hgb Hct MCV MCH MCHC RDW Std Deviation RDW Coeff of [place] Plt Count MPV Immature Gran % (Auto) Neut % (Auto) Lymph % (Auto) Coryell % (Auto) Eos % (Auto) Baso % (Auto) Neut # (Auto) Lymph # (Auto) Coryell # (Auto) Eos # (Auto) Baso # (Auto) Immature Gran # (Auto) Sodium Potassium Chloride Carbon Dioxide Anion Gap BUN Creatinine Est Cr Clr Drug Dosing Est GFR ( Amer) Est GFR (Non-Af Amer) BUN/Creatinine Ratio Glucose Fasting Glucose 79 Calcium Total Bilirubin AST ALT Alkaline Phosphatase Total Protein Albumin Globulin Albumin/Globulin Ratio Triglycerides 106 Cholesterol 125 LDL Cholesterol, Calc 61 VLDL Cholesterol, Calc 21 HDL Cholesterol 43 Cholesterol/HDL Ratio 2.9 TSH Urine Color Urine Appearance Urine pH Ur Specific Monroe Urine Protein Urine Glucose (UA) Urine Ketones Urine Blood Urine Nitrite Urine Bilirubin Urine Urobilinogen Ur Leukocyte Esterase Urine WBC (Auto) Urine RBC (Auto) U Hyaline Cast (Auto) U Epithel Cells (Auto) Urine Bacteria (Auto) Salicylates Urine Opiates Screen Neg Ur Methadone, Qual Neg Acetaminophen Urine Barbiturates Neg Ur Phencyclidine (PCP) Neg U Amphetamin/Meth Scrn Neg MDMA (Ecstasy) Screen Neg U Benzodiazepines Scrn Neg Ur Cocaine Metabolite Neg U Marijuana (THC) Screen Neg Ethyl Alcohol mg/dL SARS-CoV-2, RNA, NAAT NEGATIVE Hospital Course (1) Bipolar disorder: 12/16/21: re-reviewed start date of Lamictal. Can increase to 50 mg tomorrow. Continue seroquel and reviewed labs and dose range. 12/15/21: [facility] on q15 min checks (behavioral with suicide precautions) for safety. The patient will participate in group, recreational, and milieu therapies and will be offered additional individual and family sessions as clinically appropriate. Risks/benefits/alternatives reviewed re: Lamictal for mood stabilization. Discussion included but was not limited to slow titration to decrease risks of Yahir's Dagoberto syndrome. Patient agrees to hold med/notify current prescriber of rash immediately. Risks/benefits/alternatives were reviewed re: antipsychotics for mood and/or psychosis. Discussion included but was not limited to metabolic side effects, risks of TD and suicidal thoughts. There were no abnormal motor movements at baseline. Fasting glucose and lipid panel ordered for baseline monitoring. He agreed to a trial of Seroquel 50 mg po qhs with likely titration until Lamictal therapeutic. Mental Health & Subst Abuse Tx Psychiatrist Name of Psychiatrist: Donny Psych[facility]rist[facility] Date of Appointment with Psychiatrist: 12/18/21 Time of Appointment with Psychiatrist: 4pm Psychiatric Appointment Comment: Quiana Nicki Santiago [place] Psychiatrist Release of Information: Obtained, Reviewed and Signed Therapist Name of Therapist: [facility] Therapist's Therapy Appointment Comment: [address] [place] [id number] Therapist Release of Information: Obtained, Reviewed and Signed Post Discharge Appointments Primary Care Physician Name Of Family Doctor: Amanda Mosher Primary Care Provider Appointment Comment: Follow up as needed Primary Care Release of Information: Obtained, Reviewed and Signed Smoking Cessation Counseling Tobacco Cessation Medication Prescribed at Discharge: Not Applicable/Non-Smoker Contact Information Discharge Discharge Address: [address] [place] [id number] Discharge Plan Discharge Items Patient Disposition: Home - Self-Care Reason For Visit: MENTAL HEALTH EVAL, SUICIDAL Discharge Diagnosis: bipolar II disorder Activity: Resume your previous activity Non-emergency contact: Primary Care Provider, Psychiatrist and Therapist Call non-emergency contact if: you have any medication questions and your symptoms worsen Follow-up/Referrals: Karin Mercado PA-C [Primary Care Provider] - Diet: Regular Addtl Attending Provider Instructions: SPECIAL CARE INSTRUCTIONS: 1. Follow through with your scheduled aftercare appointments. If unable to keep an appointment, please call to reschedule. 2. Take your medication only as prescribed. Medication should not be changed or stopped without the approval of your doctor. In the event of worsening symptoms or concerns about side effects, contact your doctor immediately. 3. Utilize new healthy coping skills, anger management skills, and stress management skills learned during your hospitalization. Journal feelings and process them with a support person. Identify stressors or situations that may result in relapse, deterioration or inappropriate behaviors and develop a plan to deal with those issues. 4. If your coping skills are ineffective and you are in crisis, contact your outpatient providers for direction. If unable to reach your providers, please call the [facility] CRISIS LINE AT , go to the [facility] walk-in center at [address] [place] [address] [facility], or go to the closest Emergency Room. 5. Avoid alcohol and un-prescribed drugs. 6. You have been provided with the Mental Health Advance Directives Pamphlet for your review. 7. Your condition is stable for discharge to outpatient level of care, but recovery is an ongoing process. Ifthoughts to harm yourself or others return, follow the safety plan developed during your stay. Planning for a safe return home includes securing weapons. Our treatment team recommends weaponsbe removed from the home until your outpatient provider reassesses your progress. In rare cases where the items themselvescannot be removed, guns and ammunitionshould be secured separatelyand keys stored by a reliable personoutside of the home. If you were admitted on an involuntary commitment, the police or other legal authorities may be involved in this process. AFTERCARE APPOINTMENTS: * Please call your insurance company prior to your scheduled appointment to confirm your aftercare providers are covered. Take your insurance information to your appointments. WHO TO CALL AND WHEN: Medical Emergencies: For questions or emergencies related to your hospital stay, please contact the Inpatient Behavioral Health Unit at [phone]. A emergency department clinician is on-call 07/06 for the Behavioral Health Unit for emergencies At any time you feel your situation is an emergency, you may also call 911 immediately. Pending Studies at Discharge: No Stand-Alone Forms: My [facility], Smoking Cessation Medications and DC Order Prescriptions: New lamotrigine [Lamictal] 25 mg Tablet 50 mg PO QAM 14 Days Qty: 28 RF: 0 quetiapine [Seroquel] 50 mg tablet 50 mg PO HS Qty: 30 RF: 0 Continued atorvastatin 20 mg tablet 20 mg PO QAM RF: 0 lisinopril 20 mg tablet 20 mg PO QAM RF: 0 Discontinued lamotrigine 25 mg tablet 25 mg PO QAM RF: 0 bupropion HCl 150 mg tablet extended release 24 hr 150 mg PO DAILY RF: 0 Discharge Orders: Discharge Order (Routine); Ordered 12/17/21 Ordered By: Genny Jimenez Admission Data Admit Date/Time: 12/14/21 16:16 Attending Provider: Genny Jiemnez Admit Provider: Genny Jimenez Primary Care Provider: Karin Mercado Coding Level of Care Code 53192 D/C day mgmt > 30 min Diagnoses Bipolar disorder F31.9
== END 2021-12-17 13:00 | disposition home or self-care (01) | DRG 885 ==
LOC: ED 11:43 → 3S 16:10